=== PATIENT | female | born 1955 | race Caucasian/White ===

== ENCOUNTER 2018-04-07 20:50 | Emergency (ER) | payer OTHER ==
[2018-04-07 21:15] LABS: BASOPHILS # (AUTO) 0.1 10^3/uL (0.0-0.1); BASOPHILS % (AUTO) 0.9 %; EOSINOPHILS # (AUTO) 0.1 10^3/uL (0.0-0.7); EOSINOPHILS % (AUTO) 1.5 %; HGB - HEMOGLOBIN 14.3 g/dL (12.0-16.0); LYMPHOCYTES # (AUTO) 1.9 10^3/uL (1.5-3.5); LYMPHOCYTES % (AUTO) 32.8 %; MEAN CORPUSCULAR HEMOGLOBIN 31.8 pg (27.0-31.0); MEAN CORPUSCULAR HGB CONC 33.6 g/dL (32.0-36.0); MEAN CORPUSCULAR VOLUME 94.7 fL (81.0-99.0); MEAN PLATELET VOLUME 8.5 fL (7.9-10.8); MONOCYTES # (AUTO) 0.3 10^3/uL (0.0-1.0); MONOCYTES % (AUTO) 5.3 %; NEUTROPHILS # (AUTO) 3.4 10^3/uL (1.5-6.6); NEUTROPHILS % (AUTO) 59.5 %; PLT - PLATELET COUNT 190 10^3/uL (130-450); RED BLOOD COUNT 4.48 10^6/uL (4.20-5.40); RED CELL DISTRIBUTION WIDTH 13.7 % (12.0-15.0); WHITE BLOOD COUNT 5.7 x10^3/uL (4.8-10.8)
[2018-04-07 21:21] LABS: ALBUMIN 4.4 g/dL (3.2-5.5); ALBUMIN/GLOBULIN RATIO 1.5 (1.0-2.2); BILIRUBIN,TOTAL 0.8 mg/dL (0.2-1.0); CALCIUM 9.2 mg/dL (8.5-10.3); CREATININE 0.8 mg/dL (0.4-1.0); TOTAL PROTEIN 7.3 g/dL (6.7-8.2)
[2018-04-07] MEDS ORDERED: MAG HYDROX/AL HYDROX/SIMETH 30 ML UDC PO STA (21:36)
[2018-04-07] MEDS ORDERED: LIDOCAINE VISCOUS 2% 15 ML UDC MM STA (21:36)
[2018-04-07] MEDS ORDERED: FAMOTIDINE 20 MG TABLET PO STA (21:36)
--- NOTE | 2018-04-07 21:38 | XRAY Report ---
Procedure Date: 04/07/2018 Accession Number: [id number] / [id number] Procedure: XR - Chest 2 View X-Ray CPT Code: 74946 FULL RESULT: EXAM: CHEST RADIOGRAPHY EXAM DATE: 04/07/2018 09:24 PM. CLINICAL HISTORY: Chest pain. COMPARISON: None. TECHNIQUE: 2 views. FINDINGS: Lungs/Pleura: No localized infiltrate, consolidation, effusion, or pneumothorax. Mediastinum: Heart and mediastinal contours are unremarkable. Upper lobe vessels not distended. Other: None. IMPRESSION: No acute disease. RADIA
--- NOTE | 2018-04-07 21:41 | ED Physician Documentation ---
PD HPI CHEST PAIN - Stated complaint Stated Complaint: CHEST PAIN - Chief complaint Chief Complaint: Cardiac - History obtained from History obtained from: Patient, Family - History of Present Illness Timing - onset: Today Timing - onset during: Rest Timing - details: Abrupt onset, Still present Quality: Pressure, Tightness Location: Substernal Radiation: Neck Similar symptoms before: No diagnosis Recently seen: Not recently seen - Additional information Additional information: Patient is a 62 year old female with a history of GERD who is presenting to the emergency department for substernal chest pain that radiates to her neck. Patient states that she was playing the piano today when the pain started. Patient states that it is similar to her previous episodes but it didn't go away so she came in for evaluation. Patient reports that she did have some bad coffee today, and also reports that she has been under a lot of stress lately. Review of Systems Ten Systems: 10 systems reviewed and negative Cardiac: reports: Chest pain / pressure. denies: Palpitations Respiratory: denies: Dyspnea, Cough, Wheezing GI: denies: Abdominal Pain, Nausea, Vomiting : denies: Dysuria, Frequency PD PAST MEDICAL HISTORY - Past Medical History Past Medical History: Yes GI: GERD Psych: Anxiety - Past Surgical History Past Surgical History: Yes - Present Medications Home Medications: Ambulatory Orders Medication Instructions Recorded Confirmed Vortioxetine Hydrobromide 1 tab PO DAILY 04/07/18 04/07/18 [Trintellix] clonazePAM [Clonazepam] 1 tab PO DAILY 04/07/18 04/07/18 - Allergies Allergies/Adverse Reactions: Allergies Allergy/AdvReac Type Severity Reaction Status Date / Time No Known Drug Allergies Allergy Verified 04/07/18 20:58 - Social History Does the pt smoke?: No Smoking Status: Never smoker Does the pt drink ETOH?: Yes Does the pt have substance abuse?: No - Immunizations Immunizations are current?: Yes - POLST Patient has POLST: No PD ED PE NORMAL - Vitals Vital signs reviewed: Yes - General General: Alert and oriented X 3, No acute distress - HEENT HEENT: Atraumatic - Neck Neck: Supple, no meningeal sign - Cardiac Cardiac: RRR - Respiratory Respiratory: No respiratory distress, Clear bilaterally - Abdomen Abdomen: Soft, Non tender, Non distended - Derm Derm: Normal color, Warm and dry - Extremities Extremities: No deformity - Neuro Neuro: Alert and oriented X 3, No motor deficit, Normal speech Eye Opening: Spontaneous Motor: Obeys Commands Verbal: Oriented GCS Score: 15 - Psych Psych: Normal mood Results - Vitals Vitals: Vital Signs - 24 hr 04/07/18 04/07/18 04/07/18 20:52 22:17 23:09 Heart Rate 77 77 69 Respiratory 16 21 12 Rate Blood Pressure 127/71 100/47 L 104/74 O2 Saturation 99 97 96 Oxygen O2 Source Room air - EKG (time done) 2055 Rate: Rate (enter#) (73) Rhythm: NSR [place]: Normal Intervals: Normal ID QRS: Normal Ischemia: Normal ST segments Compare to prior EKG: Old EKG unavailable Computer interpretation: Agree with computer 2300 Rate: Rate (enter#) (68) Rhythm: NSR Compare to prior EKG: Unchanged from prior EKG - Labs Labs: Laboratory Tests 04/07/18 04/07/18 04/07/18 21:00 21:00 21:00 WBC 5.7 RBC 4.48 Hgb 14.3 Hct 42.4 MCV 94.7 MCH 31.8 H MCHC 33.6 RDW 13.7 Plt Count 190 MPV 8.5 Neut # (Auto) 3.4 Lymph # (Auto) 1.9 [place] # (Auto) 0.3 Eos # (Auto) 0.1 Baso # (Auto) 0.1 Absolute Nucleated RBC 0.00 Nucleated RBC % 0.0 D-Dimer < 200.0 L Sodium 140 Potassium 3.7 Chloride 101 Carbon Dioxide 31 Anion Gap 8.0 BUN 13 Creatinine 0.8 Estimated GFR (MDRD) 73 L Glucose 129 H Calcium 9.2 Total Bilirubin 0.8 AST 23 ALT 15 Alkaline Phosphatase 55 Troponin I B-Natriuretic Peptide Total Protein 7.3 Albumin 4.4 Globulin 2.9 Albumin/Globulin Ratio 1.5 Lipase 31 04/07/18 04/07/18 04/07/18 21:00 21:00 23:00 WBC RBC Hgb Hct MCV MCH MCHC RDW Plt Count MPV Neut # (Auto) Lymph # (Auto) [place] # (Auto) Eos # (Auto) Baso # (Auto) Absolute Nucleated RBC Nucleated RBC % D-Dimer Sodium Potassium Chloride Carbon Dioxide Anion Gap BUN Creatinine Estimated GFR (MDRD) Glucose Calcium Total Bilirubin AST ALT Alkaline Phosphatase Troponin I < 0.04 < 0.04 B-Natriuretic Peptide 18 Total Protein Albumin Globulin Albumin/Globulin Ratio Lipase - Rads (name of study) chest x-ray Radiology: Final report received (no acute disease process) PD MEDICAL DECISION MAKING - ED course Complexity details: reviewed old records, reviewed results, re-evaluated patient , considered differential, d/w patient, d/w family ED course: Patient was seen and examined at bedside. ekg was performed and was normal sinus. iv access was gained and labs were drawn. Patient's preliminary diagnostics were within normal limits. patient was treated with pepcid, maalox and viscous lidocaine. Patient had good relief of her pain. patient's diagnostics, including repeat ekg and troponin where within normal limits. patient had a HEART score of 2 and was stable for discharge with outpatient follow up. - Sepsis Event Vital Signs: Vital Signs - 24 hr 04/07/18 04/07/18 04/07/18 20:52 22:17 23:09 Heart Rate 77 77 69 Respiratory 16 21 12 Rate Blood Pressure 127/71 100/47 L 104/74 O2 Saturation 99 97 96 Oxygen O2 Source Room air Departure - Departure Disposition: 01 Home, Self Care Clinical Impression: Chest pain Condition: Good Instructions: ED Chest Pain Atypical Unkn Cause Follow-Up: primary,care provider [Other] - Within 3 Days Comments: Your diagnostics today were within normal limits, indicating that the pain is less likely to be cardiac in nature. that being said it is only a snapshot in time. You should follow up with your doctor for an echocardiogram and stress test as they are more definitive in nature. you should return to the emergency department at any time for new, worsening or uncontrollable symptoms.
[2018-04-07 23:10] VITALS: BP 104/74
== END 2018-04-07 23:30 | disposition home or self-care (01) ==
LOC: ED 20:50
DX: R07.9 Chest pain, unspecified (principal)
CPT/HCPCS: 36415; 71046; 80053; 83690; 83880; 84484; 85025; 85379; 93005; 99283; 99284; A9270